=== PATIENT | female | born 1990 | race Caucasian/White ===

== ENCOUNTER 2016-08-06 23:22 | Emergency (ER) | payer BC, OTHER ==
[~2016-08-06] VITALS: Ht 162.6 cm; Wt 54.2 kg
[~2016-08-06 23:22] MED LIST: CIPR-255 PO
[2016-08-06 23:27] VITALS: TEMP 36.8; Ht 162.6 cm; Wt 54.2 kg
[2016-08-06] MEDS ORDERED: AMOX500C3 PO (23:48)
[2016-08-06 23:53] VITALS: BP 104/66; PULSE 82; O2SAT 99
[2016-08-06] MEDS ORDERED: PRENTAB26 PO (23:56)
[2016-08-06] MEDS ORDERED: CHOL1000 PO (23:57)
--- NOTE | 2016-08-06 23:58 | EMERGENCY ROOM VISIT NOTE ---
History First contact with patient: 23:30 Chief Complaint: SINUS CONGESTION/PRESSURE Stated Complaint: COLD SYMPTOMS Nursing Triage Summary: Cough and congestion History of Present Illness The patient is a 25 year old female who presents to the Emergency Room with complaints of getting and sinus congestion, pressure, postnasal drip and coughing from the postnasal drip. The patient reports that her symptoms started 4 days ago, and are progressively worsening. She denies any fevers or chills. She does report a history of chronic sinusitis as a child. The patient is currently 14 weeks . She did call her CASH APPLICATIONS MANAGER who suggested that she could take Sudafed for her symptoms. She is concerned that Sudafed could be harmful for her . She has also been using a humidifier which has helped significantly. She does report a mild headache rated a 2 out of 10. Review of Systems 10 system review was performed and was negative except for pertinent positives and negatives as indicated in history of present illness Past Medical/Surgical History Medical Problems: (1) Stomach problems Surgical Problems: (1) H/O arthroscopic knee surgery Family History Cancer FH: diabetes mellitus Gallbladder disease Heart disease Hypertension Kidney disease Social History Smoking Status: Former Smoker Alcohol Use: none Marital Status: Occupation Status: employed Current/Historical Medications Scheduled Amoxicillin (Amoxil), 500 MG PO TID Cholecalciferol (Vitamin D3), 5,000 UNITS PO DAILY Multivit/Min/Iron/Fol Ac/Pren ( Vitamin), 1 TAB PO DAILY Allergies Coded Allergies: Asparagus (Verified Allergy, Severe, RASH, 05/20/16) Gluten (Verified Adverse Reaction, Intermediate, GI UPSET, 05/20/16) Physical Exam Vital Signs Date Time Temp Pulse Resp B/P Pulse Ox O2 Delivery O2 Flow Rate FiO2 08/06/16 23:53 82 16 104/66 99 08/06/16 23:46 100 Room Air 08/06/16 23:27 36.8 86 20 113/70 94 Room Air Physical Exam CONSTITUTIONAL: Healthy and well nourished. Alert and oriented X 3 with positive affect. Patient does not appear in any acute distress. HEENT: Normocephalic, atraumatic. Pupils equal, round and reactive. Patient does not have any significant tenderness to palpation or percussion of the frontal or maxillary sinuses. Clear rhinorrhea is noted. TMs are bulging without air-fluid levels or purulent effusion. OROPHARYNX: Mild postnasal drip is noted. No tonsillar hypertrophy. NECK: Full active range of motion without discomfort. LYMPHATICS: No cervical chain adenopathy. RESPIRATORY: Clear to auscultation bilaterally with no wheezing, crackles, rhonchi or stridor. CARDIOVASCULAR: Regular rate and rhythm with no murmurs, rubs or gallops. INTEGUMENTARY: No rash or other significant dermatologic conditions noted. NEUROLOGIC: No focal neurologic deficits noted. Medical Decision & Procedures ED Course Patient history and physical exam were performed. Nurse's notes were reviewed. Vital signs were reviewed. The patient is afebrile. O2 saturation was 94% on room air in triage. I did recheck O2 saturation in her room, and was 98%. Clinical exam is suggestive of sinus etiology, probably acute viral sinusitis. I did suggest trying Benadryl for symptomatic relief. She can also try saline nasal rinses as well as. I will defer the choice of Sudafed to the patient's OB /NATURAL RESOURCES ENGINEER. In case the patient's symptoms progressively worsen, she was provided a prescription for amoxicillin 500 mg 3 times a day 10 days. She was instructed to follow-up with her family doctor if symptoms progressively worsened. The patient was happy with plan of care, voiced understanding of all discharge instructions, and denied any significant discomfort at the time of discharge. Medical Decision Impression Primary Impression: Acute sinusitis Departure Information Dispostion Home / Self-Care Prescriptions Amoxicillin (AMOXIL) 500 Mg Cap 500 MG PO TID for 10 Days, #30 CAP Prov: Evaristo Win PA 08/06/16 Forms HOME CARE DOCUMENTATION FORM, IMPORTANT VISIT INFORMATION Patient Instructions Sinusitis Acute, My [facility] Additional Instructions Try taking Benadryl for symptomatic relief. Also suggest trying nasal saline rinses. Tylenol 1000 mg every 6-8 hours as needed for headache or pain. Symptoms progressively worsened, take your amoxicillin antibiotics as prescribed. Follow-up with your family doctor as needed for any worsening symptoms. Problem Qualifiers Primary Impression: Acute sinusitis Sinusitis location: unspecified location Recurrence: non-recurrent Qualified Codes: J01.90 - Acute sinusitis, unspecified
== END 2016-08-06 23:54 | disposition home or self-care (01) ==
LOC: C.EDB 23:23 → C.EDA 23:54
DX: J01.90 Acute sinusitis, unspecified (principal); O99.512 Diseases of the respiratory system complicating pregnancy, second trimester; Z3A.14 14 weeks gestation of pregnancy; Z79.899 Other long term (current) drug therapy; Z87.891 Personal history of nicotine dependence; Z82.49 Family history of ischemic heart disease and other diseases of the circulatory system; Z83.3 Family history of diabetes mellitus; Z83.79 Family history of other diseases of the digestive system; Z84.1 Family history of disorders of kidney and ureter

== ENCOUNTER 2016-11-26 17:24 | Outpatient (CLI) | payer BC ==
[~2016-11-26 17:24] MED LIST changes: +CHOL1000 PO; -CIPR-255 PO; +PRENTAB26 PO
--- NOTE | 2016-11-26 18:50 | Progress Note ---
Progress Note Date of Service November 26, 2016. Progress Note Outpatient Note 26 F P0000 at 30.1 weeks seen in L&D today for abdominal pain that is not accompanied by any leakage of fluid or any bleeding. Patient states she has no dysuria or frequency. Has had no constipation and moving her bowels OK. No problems in the to date. T Cat 1. Cervix closed and thick and posterior. Will d/c home. Encourage PO hydration.
== END 2016-11-26 19:04 | disposition home or self-care (01) ==
LOC: C.OPB 17:24 → C.LD 17:25 → C.OPB 19:04
PROVIDERS: ATTEND Obstetrics & Gynecology
DX: O26.893 Other specified pregnancy related conditions, third trimester (principal); R10.9 Unspecified abdominal pain; Z3A.30 30 weeks gestation of pregnancy

== ENCOUNTER 2017-02-03 03:27 | Inpatient (IN) | payer BC ==
[~2017-02-03] VITALS: Ht 162.6 cm; Wt 54.0 kg
[2017-02-07] MEDS ORDERED: DINOPROSTONE 10 MG INSERT PV ONE (19:30)
[2017-02-07] MEDS: LACTATED RINGER'S 1000ML 1,000 ML IV SCH (20:14)
[2017-02-07] MEDS ORDERED: CALCIUM CARBONATE 500 MG CHEWABLE PO PRN (20:30)
--- NOTE | 2017-02-07 20:41 | HISTORY & PHYSICAL EXAMINATION ---
DATE OF ADMISSION: 02/07/2017 CHIEF COMPLAINT: Postdates , here for labor induction. HISTORY OF PRESENT ILLNESS: This is a 26-year-old , due date 02/03/2017 making her 40 weeks and 4 days . The patient is here at [facility] for labor induction for postdates. On arrival to labor and delivery, she has no shortness of breath, no chills, no fever, no bloody show, no rupture of membranes. heart rate is category 1. COURSE: Unremarkable. LABS: Blood type A negative, antibody negative, rubella immune, GBS negative. PAST MEDICAL HISTORY: None. PAST SURGICAL HISTORY: History of knee surgery. SOCIAL HISTORY: The patient denies tobacco, drug or alcohol use. FAMILY HISTORY: Noncontributory. OBSTETRIC AND GYNECOLOGIC HISTORY: This is patient's first . PHYSICAL EXAMINATION: GENERAL: Well-developed, well-nourished white female in no acute distress. HEART: S1, S2, regular rhythm and rate. LUNGS: Clear to auscultation bilaterally. ABDOMEN: Gravid. PELVIC: The patient was 2 cm dilated. EXTREMITIES: No cyanosis, clubbing or edema. ASSESSMENT AND PLAN: A 26-year-old 1, para 0, at 40 weeks and 4 days here for postdates induction. Plan is to admit patient and start induction and anticipate vaginal delivery.
[2017-02-07 21:11] LABS: HEMATOCRIT 35.5 % (37-47); MEAN CELL VOLUME 93.9 fL (80-100); MEAN CORPUSCULAR HEMOGLOBIN 32.5 pg (25-34); MEAN CORPUSCULAR HGB CONC 34.6 g/dl (32-36); MEAN PLATELET VOLUME 10.1 fL (7.4-10.4); PLATELET COUNT 191 K/uL (130-400); RED BLOOD COUNT 3.78 M/uL (4.2-5.4)
[2017-02-07 21:17] VITALS: Ht 162.6 cm; Wt 54.0 kg
[2017-02-08] MEDS: LACTATED RINGER'S 1000ML 1,000 ML IV SCH ×4 (02:02→15:20)
[2017-02-08] MEDS ORDERED: BUTORPHANOL TARTRATE 1 MG/ML VIAL IV ONE (06:00)
[2017-02-08] MEDS ORDERED: NURSING VERBAL MED ORDER ONE (06:00)
[2017-02-08] MEDS ORDERED: LACTATED RINGER'S 1000ML 500 ML IV PRN ×2 (08:26→10:33)
[2017-02-08] MEDS ORDERED: OXYTOCIN 30 UNITS/500ML NSS IV PRN ×2 (08:30→20:15)
[2017-02-08] MEDS ORDERED: EpHEDrine SULFATE INJ 50 MG/ML AMP ONE (09:59)
[2017-02-08] MEDS ORDERED: FENTANYL 2MCG/ML ROPIV 1.25MG/ML 100ML BAG EPI ONE (09:59)
[2017-02-08] MEDS ORDERED: FENTANYL CITRATE INJ 50 MCG/1 ML 2 ML VIAL ONE (09:59)
[2017-02-08] MEDS ORDERED: BUPIVACAINE 0.25% 30 ML VIAL ONE ×2 (09:59→18:11)
[2017-02-08] MEDS ORDERED: NALOXONE HCL INJ 1 MG in SODIUM CHLORIDE 0.9% 1000ML 1,000 ML IV PRN (10:33)
[2017-02-08] MEDS ORDERED: NALOXONE HCL INJ 0.4 MG/1 ML VIAL/CARP IV PRN (10:45)
[2017-02-08] MEDS ORDERED: DiphenhydrAMINE HCL 50 MG/ML VIAL IV PRN (10:45)
[2017-02-08] MEDS ORDERED: NALBUPHINE HCL INJ 10 MG/ML AMP IV PRN (10:45)
[2017-02-08] MEDS ORDERED: EpHEDrine SULFATE INJ 50 MG/ML AMP IV PRN (10:45)
[2017-02-08] MEDS ORDERED: ONDANSETRON INJ 2 MG/ML 2 ML VIAL IV PRN (10:45)
[2017-02-08] MEDS: FENTANYL 2MCG/ML ROPIV 1.25MG/ML 100ML BAG EPI PRN ×2 (18:59→19:11)
[2017-02-08] MEDS ORDERED: LACTATED RINGER'S 1000ML 1,000 ML IV SCH (20:15)
[2017-02-08] MEDS ORDERED: BENZOCAINE 20% AER SPR 82.5 GM CAN EXT PRN (20:15)
[2017-02-08] MEDS ORDERED: HYDROCORTISONE ACETATE 25 MG SUPP PR PRN (20:15)
[2017-02-08] MEDS ORDERED: LANOLIN OINT EXT PRN ×2 (20:15)
[2017-02-08] MEDS ORDERED: SUPERCREAM 0.870 % 15GM JAR EXT PRN (20:15)
[2017-02-08] MEDS ORDERED: ACETAMINOPHEN 325 MG TAB PO PRN (20:15)
[2017-02-08] MEDS: IBUPROFEN 600 MG TAB PO PRN (20:38)
--- NOTE | 2017-02-08 22:16 | Anesthesia Procedure Note ---
Anesthesia Epidural Removal Nt Date & Time Feb 08, 2017 at 22:16 Vital Signs Pain Intensity: 4.0 Notes Mental Status: alert / awake / arousable, participated in evaluation Nausea / Vomiting: adequately controlled Pain: adequately controlled Airway Patency, RR, SpO2: stable & adequate BP & HR: stable & adequate Hydration State: stable & adequate Neuraxial Anesthesia: was administered, sensory block is resolving Anesthetic Complications: no major complications apparent, pt satisfied with anesthetic care Epidural: removed without complications, with tip intact
[2017-02-08 23:00] VITALS: BP 101/68; PULSE 72; TEMP 36.9
[2017-02-09 03:55] VITALS: BP 109/71; PULSE 89; TEMP 36.7
[2017-02-09] MEDS: IBUPROFEN 600 MG TAB PO PRN ×3 (06:00→19:34)
[2017-02-09 06:41] LABS: HEMATOCRIT 33.2 % (37-47)
[2017-02-09] MEDS ORDERED: DIPHTHERIA/TETANUS/PERTUSSIS 0.5 ML SYR/VIAL IM. ONE (08:00)
[2017-02-09] MEDS ORDERED: MEASLES, MUMPS & RUBELLA VIRUS VIAL SQ. ONE (08:00)
[2017-02-09 08:15] VITALS: BP 114/75; PULSE 98; TEMP 37.1
[2017-02-09] MEDS: PRENATAL VITAMIN TAB PO SCH (09:15)
[2017-02-09] MEDS: DOCUSATE SODIUM 100 MG CAP PO SCH ×2 (09:16→19:34)
[2017-02-09] MEDS: FERROUS SULFATE 325 MG TAB PO SCH (09:16)
--- NOTE | 2017-02-09 09:42 | DELIVERY SUMMARY ---
DATE OF OPERATION: 02/08/2017 TIME OF DELIVERY OF BABY: 1946 p.m. TIME OF DELIVERY OF PLACENTA: 2000 p.m. DETAILS OF DELIVERY: The patient was found to be fully dilated and desired to push. She pushed for about 2 hours and delivered the head over an intact perineum. Anterior shoulder was delivered with minimal traction and then baby was delivered without difficulty and handed off to the mother, where mouth and nose were suctioned. Cord was clamped x2 and cut at 1 minute and it was a 3-vessel cord. Cord blood was obtained. Baby was recovered on the maternal chest. Then the mother's vagina and perineum were checked for lacerations. There was a 1 cm first-degree vaginal laceration at the left of lower vaginal wall. It was repaired with 3-0 Vicryl in a running locked fashion. Good hemostasis was achieved. There was a superficial first degree laceration on anterior vaginal wall lower the bladder. Babin catheter was inserted into the bladder during repair and removed. It was repaired with 3-0 Vicryl on SH needle. Good hemostasis was achieved. Placenta was found to be in the vagina and delivered spontaneously as intact and complete. Uterus was explored and found to be empty. Lower segment was cleared of all clots and debris. Fundus was firm. EBL was 200. Mom and baby tolerated the procedure well. Sponge, lap, needle, instrument count was correct x2. Baby was a viable male . Apgars 8/9 and Weight is 3536 gr. No complications happened and I was present during whole procedure. I attest to the content of the Intraoperative Record and any orders documented therein. Any exceptions are noted below. MTDD
--- NOTE | 2017-02-09 11:42 | OB/GYN Progress Note ---
SUSPENDER MAKER Progress Note Date of Service Feb 09, 2017. Subjective conversation w/ patient, physical exam Ambulation: ambulating normally Voiding: no voiding problems Passing Gas: Yes Diet Tolerance: Regular Diet Lochia: Small Feeding Type: Breast Feeding Pain: 07/17 Notes: Doing well, no concerns. Objective Vital Signs Date Time Temp Pulse Resp B/P (MAP) Pulse Ox O2 Delivery O2 Flow Rate FiO2 02/09/17 08:15 Room Air 02/09/17 08:15 37.1 98 18 114/75 (88) Room Air 02/09/17 03:55 36.7 89 18 109/71 (84) Room Air 02/08/17 23:00 Room Air 02/08/17 23:00 36.9 72 18 101/68 (79) Room Air Physical Exam General Appearance: WELL-APPEARING Respiratory/Chest: chest non-tender, lungs clear Cardiovascular: regular rate, rhythm Abdomen: normal bowel sounds, soft Fundus: Firm Extremities: normal range of motion, non-tender, no calf tenderness Laboratory Results Last 24 Hours Test 02/09/17 06:08 Hemoglobin 11.3 g/dL Hematocrit 33.2 % Assessment and Plan Post- Day Number: 1 Continue Routine Care: -Continue routine care -Anticipate d/c home tomorrow
[2017-02-09 12:00] VITALS: BP 112/72; PULSE 101; TEMP 36.8
[2017-02-09 15:45] VITALS: BP 112/72; PULSE 96; TEMP 36.9
[2017-02-09 19:45] VITALS: BP 122/79; PULSE 86; TEMP 36.6; O2SAT 100
[2017-02-09] MEDS ORDERED: BISACODYL 5 MG TABEC PO SCH (20:00)
[2017-02-10] VITALS: BP 119/75; PULSE 83; TEMP 36.8; O2SAT 98
[2017-02-10] MEDS: IBUPROFEN 600 MG TAB PO PRN ×2 (01:15→09:43)
[2017-02-10] MEDS ORDERED: BISACODYL 10 MG SUPP PR PRN (07:00)
[2017-02-10 07:30] VITALS: BP 103/65; PULSE 81; TEMP 36.9
--- NOTE | 2017-02-10 08:10 | Discharge Instructions ---
Discharge Instructions Date of Service Feb 10, 2017. Admission Reason for Admission: Induction Discharge Discharge Diagnosis / Problem: Vaginal Delivery Discharge Goals Goal(s): Routine recovery after delivery Medications Continue Dispensed Medications: supercream, dermaplast, tucks, lansinoh Activity Recommendations Activity Limitations: per Instructions/Follow-up section . Instructions / Follow-Up Instructions / Follow-Up ACTIVITY RECOMMENDATIONS: * Gradual return to full activity over the next 2-3 weeks. * No lifting - nothing heavier than baby over the next 2-3 weeks. * Do not engage in vigorous exercise, sexual activity or sports until cleared by your physician. * Do not drive or operate any motorized equipment until cleared by your physician. * You may shower/bathe daily. BREAST CARE: If you are not breast feeding: * Wear a supportive bra 24 hours a day for one to two weeks. * Avoid stimulating your breasts and nipples as much as possible during the first few weeks after delivery. * When taking a shower, have the warm water hit your back, not breasts. * When your breasts feel full, apply ice packs. Usually three to four times a day helps ease the discomfort. * Take a mild pain medication (Tylenol/Motrin) when you are uncomfortable. If breast feeding: * Use breast milk to lubricate nipples. Lansinoh cream may be used for sore nipples. You do not need to remove cream prior to breast feeding. If using a different brand of cream, check the label for directions regarding removal of cream prior to nursing. * Wear a supportive bra. * If having problems with breasts or breast feeding, call a cost consultant or your health care provider. EPISIOTOMY CARE: After delivery, if you have an episiotomy (stitches), the following steps will ease discomfort and aid healing. * For the first 24 hours after delivery, place ice packs next to your episiotomy to help reduce swelling. * After the first 24 hour-period, sitz baths, either portable or in the tub, are suggested. A shower with a shower arm sprayed over the episiotomy may be comforting. * Maria Antonia care should be done after each voiding and bowel movement. Squirt warm water from a plastic bottle over the perineum (region of the body between the anus and urinary opening) and pat dry. * Use Dermoplast to ease discomfort. Shake container. [place] directly over the episiotomy. * Place a Tucks on a clean sanitary pad next to your episiotomy. OVER THE COUNTER MEDICATION: * For discomfort or pain, you may use Acetaminophen (Tylenol), Ibuprofen (Advil ), or Naproxen (Aleve) following the package directions. * For constipation you may use Colace following the package directions. SPECIAL CARE INSTRUCTIONS: When you are discharged from the hospital, it is important for you to follow the instructions listed below: * During the first week at home, you should be able to care for yourself and your baby. In addition, the usual light household activities are encouraged. * Limit your activities to the way you feel. Do not try to clean the house or move furniture. Be sensible. * If you actively engage in sports and have done so up until the time of your delivery, you may resume these activities as soon as you feel able. This may take up to one month or even longer. Use good judgment. * Continue to take your vitamins for at least six weeks after the of your baby. * Your diet need not be limited unless you were on a special diet before your delivery. Breast-feeding mothers need around 2500 calories per day and at least 64-80 ounces of fluid per day (8 to 10 glasses). * You should eat foods from the four major food groups. Crash diets or fad diets are to be avoided. Eating lean meats, fresh fruits and vegetables, low-fat dairy products, high fiber foods and a regular exercise program, will help you get back to your pre- weight without putting your health at risk. * Constipation is sometimes a problem after delivery. Take a mild laxative as needed. If breast feeding, Milk of Magnesia is acceptable to use. You may use a suppository or Fleets enema if no episiotomy. * A daily shower or tub bath is suggested. Be sure to thoroughly and gently dry the perineum. * A bloody vaginal discharge will usually continue until around four weeks post . A small amount of bleeding may continue for as long as six weeks. Vaginal discharge changes from the bright red bleeding after delivery to pink then brownish and finally yellowish-pink before becoming white and disappearing. * Bleeding may increase with activity. Your first period may come in 4-8 weeks. If you are breast feeding, your period may be delayed even longer. * [place] (sex) can begin whenever both you and your partner feel comfortable and do not have any form of genital infection. It is recommended that you wait until after your return appointment and discuss with your physician. If you have questions, please talk to your health care practitioner. A condom should be used to prevent infection and . * Foreplay, gentle intercourse and lubrication is very important the first several times to prevent pain. A water-based lubricant such as K-Y jelly or Astroglide may be used. * Tampons may be used six weeks after delivery. * Douching should be avoided for 6 weeks after delivery. * If you have RH negative blood and your baby is RH positive, you will receive RHOGAM by injection prior to discharge. The nurse will give you a card to keep with you that has the date and place that you received RHOGAM after delivery. * During your care, you had a Rubella screen done to check for the presence of rubella antibodies in your blood. If your test was negative, you will receive a Rubella vaccine prior to discharge. This vaccine may cause a fever, soreness at the injection site and flu-like symptoms. If these symptoms persist, notify your health care practitioner. is not advised for three months after a Rubella vaccine. There is a higher chance of having a baby with defects if conceived within three months of getting the vaccine. * If you were discharged 24 hours from delivery or before 48 hours: Visiting nurses will come to your home 48 hours after discharge to assess you and your baby. The visiting nurse will meet with you while you are in the hospital to arrange a time and get directions to your home. * Verbalizes understanding of car seat law as reviewed with patient nursing. * Car Seat hand-out given and reviewed with patient by nursing. * Shaken baby information reviewed with patient by nursing. Call you doctor if: * Heavy bleeding (saturating several pads an hour) or passing clots the size of your fist. * A fever >101 degrees F (38.3 degrees C) on two occasions four hours apart and/or chills. * Unusual pain in the pelvic or vaginal areas. * "Baby Blues" lasting longer than two weeks. If you have any questions or concerns, call your health care practitioner at . FOLLOW-UP VISIT: * Please call the office at to schedule a 6 week examination. It is important you keep this appointment. * It is important for you to make arrangements for either yearly or twice yearly check-ups thereafter. Current Hospital Diet Patient's current hospital diet: N/A, Regular OB Diet Discharge Diet Recommended Diet: Regular OB Diet Pending Studies Studies pending at discharge: no Medical Emergencies . Who to Call and When: Medical Emergencies: If at any time you feel your situation is an emergency, please call 911 immediately. . Non-Emergent Contact Non-Emergency issues call your: Primary Care Provider, Ekg Monitor . . "Provider Documentation" section prepared by Nico Cardoza. . VTE Core Measure Inpt VTE Proph given/why not?: Treatment not indicated
--- NOTE | 2017-02-10 08:12 | OB/GYN Progress Note ---
ADJUNCT TRAINER Progress Note Date of Service Feb 10, 2017. Subjective conversation w/ patient Ambulation: ambulating normally Voiding: no voiding problems Passing Gas: Yes Diet Tolerance: Regular Diet Lochia: Small Feeding Type: Breast Feeding Pain: 07/17 Notes: Doing well, no concerns. Would like to go home today. Review of Systems Constitutional: No fever, No chills, No sweats, No weight loss, No weakness, No fatigue, No problem reported Respiratory: No cough, No sputum, No wheezing, No shortness of breath, No dyspnea on exertion, No dyspnea at rest, No hemoptysis, No problem reported Cardiac: No chest pain, No orthopnea, No PND, No edema, No claudication, No palpitations, No problem reported Abdomen: No pain, No nausea, No vomiting, No diarrhea, No constipation, No GI bleeding, No problem reported Female : No see HPI, No dysuria, No urinary frequency, No hematuria, No incontinence, No abnormal vaginal bleeding, No vaginal discharge, No problem reported Objective Vital Signs Date Time Temp Pulse Resp B/P (MAP) Pulse Ox O2 Delivery O2 Flow Rate FiO2 02/10/17 00:00 98 Room Air 02/10/17 00:00 36.8 83 20 119/75 (90) 98 Room Air 02/09/17 19:45 36.6 86 20 122/79 (93) 100 Room Air 02/09/17 15:45 Room Air 02/09/17 15:45 36.9 96 18 112/72 (85) Room Air 02/09/17 12:00 36.8 101 18 112/72 (85) Room Air 02/09/17 08:15 Room Air 02/09/17 08:15 37.1 98 18 114/75 (88) Room Air Assessment and Plan Post- Day Number: 2 Continue Routine Care: -D/C home today -F/U in 6 weeks.
[2017-02-10] MEDS: PRENATAL VITAMIN TAB PO SCH (09:35)
[2017-02-10] MEDS: FERROUS SULFATE 325 MG TAB PO SCH (09:35)
[2017-02-10] MEDS: DOCUSATE SODIUM 100 MG CAP PO SCH (09:35)
[2017-02-10 11:35] VITALS: BP_DIAS 65; PULSE 81; TEMP 36.9
== END 2017-02-10 11:40 | disposition home or self-care (01) | DRG 775 ==
LOC: C.LD 02-07 18:48 → C.OBG 02-08 22:53
PROVIDERS: ADMIT Obstetrics & Gynecology; ATTEND Obstetrics & Gynecology
PROC: 10E0XZZ Delivery of Products of Conception, External Approach (ICD-10-PCS; principal; 2017-02-08)
PROC: 0UQG7ZZ Repair Vagina, Via Natural or Artificial Opening (ICD-10-PCS; principal; 2017-02-08)
PROC: 3E0P7GC Introduction of Other Therapeutic Substance into Female Reproductive, Via Natural or Artificial Opening (ICD-10-PCS; principal; 2017-02-08)
DX: O48.0 Post-term pregnancy (principal); O71.4 Obstetric high vaginal laceration alone; O76 Abnormality in fetal heart rate and rhythm complicating labor and delivery; Z37.0 Single live birth; Z3A.40 40 weeks gestation of pregnancy

== ENCOUNTER 2017-10-01 19:00 | Emergency (ER) | payer SELFPAY ==
[~2017-10-01] VITALS: Ht 162.6 cm; Wt 53.5 kg
[2017-10-01 19:09] VITALS: TEMP 36.7; Ht 162.6 cm; Wt 53.5 kg
[2017-10-01] MEDS ORDERED: AMX500 PO (19:25)
--- NOTE | 2017-10-01 19:29 | EMERGENCY ROOM VISIT NOTE ---
History First contact with patient: 19:12 Chief Complaint: DENTAL PAIN Stated Complaint: TOOTH ISSUES Nursing Triage Summary: Pt states has a right upper wisdom tooth that "has a hole in it and I think it exploded and is infected. It broke two days ago." History of Present Illness The patient is a 26 year old female who presents to the Emergency Room via private vehicle accompanied by male and young child "dental pain". The patient states that with complaints of she has been experiencing cold is with her right superior posterior wisdom tooth for the past 2 years. She states that it broke 2 days ago, now she has had significant pain is been increasing and radiates to her face. She rates the overall pain as a 7/10. She has been trying ibuprofen with minimal relief. She expresses concerns that this is causing her to have decreased eating habits because of the pain and worries that it may subsequently affect the child what she is breast-feeding. There are no fevers, chills, drainage is from the region. Review of Systems A complete 10-point Review of Systems was discussed with the patient, with pertinent positives and negatives listed in the History of Present Illness. All remaining Review of Systems questions can be considered negative unless otherwise specified. Past Medical/Surgical History Medical Problems: (1) Abdominal pain affecting (2) (3) Stomach problems Surgical Problems: (1) H/O arthroscopic knee surgery Family History Cancer FH: diabetes mellitus Gallbladder disease Heart disease Hypertension Kidney disease Social History Smoking Status: Never Smoker Alcohol Use: none Marital Status: Occupation Status: employed Current/Historical Medications Scheduled Amoxicillin (Amoxicillin), 500 MG PO TID Cholecalciferol (Vitamin D3), 5,000 UNITS PO DAILY Multivit/Min/Iron/Fol Ac/Pren ( Vitamin), 1 TAB PO DAILY Physical Exam Vital Signs Date Time Temp Pulse Resp B/P (MAP) Pulse Ox O2 Delivery O2 Flow Rate FiO2 10/01/17 20:12 75 16 113/76 98 10/01/17 19:09 36.7 94 18 148/89 98 Room Air Physical Exam VITAL SIGNS - Vital signs and nursing notes were reviewed. Stable. GENERAL - 26-year-old female appearing her stated age who is in no acute distress. Communicates well with provider and answers questions appropriately. SKIN - Without rashes. No meningeal rashes or petechial rashes. HEAD - NC/AT. EYES - PERRL with EOMI bilaterally. Sclera anicteric. EARS - No deformities of external structures noted on gross examination bilaterally. External auditory canals without discharge or otorrhea. Tympanic membranes pearly perez without retraction or bulging. No fluid or purulent material visualized behind the TM. Handle of malleus, umbo, cone of light, pars tensa/flaccid all easily visualized. NOSE - Midline and without cyanosis. No epistaxis or purulent drainage noted. MOUTH/OROPHARYNX - Without perioral cyanosis. Buccal mucosa pink and moist and without leukoplakia. Fractured superior, posterior dentition noted. No drainage , evidence of abscess or overt infection. NECK - Neck with FROM. Supple to palpation. No lymphadenopathy noted. No nuchal rigidity. Medical Decision & Procedures Medications Administered Medications (Trade) Dose Ordered Sig/Jessie Route Start Time Stop Time Status Last Admin Dose Admin Ibuprofen (Motrin Tab) 600 mg STK-MED ONCE .ROUTE 10/01/17 20:07 10/01/17 20:08 DC 10/01/17 20:07 600 MG Acetaminophen (Tylenol Tab) 1,000 mg STK-MED ONCE PO 10/01/17 20:07 10/01/17 20:08 DC 10/01/17 20:07 1,000 MG Medical Decision Patient was seen and evaluated as above in room D6. She presents to us today with right superior posterior molar/wisdom tooth pain with fracture of the tooth. No drainage. The gums are not erythematous. No evidence of Edwardo angina. There is no evidence of infection at this time from a visual inspection standpoint. She is nontoxic in appearance. Review was performed of nursing notes and vital signs. After obtaining a thorough history and physical examination decision was made to treat her with amoxicillin in the event that you could be a small infection developing that is subclinical, and providing her information to follow with a local dentist. She is to return with worsening. I do believe amoxicillin as a safe choice given that she is breast- feeding, and she is also to alternate Tylenol and ibuprofen being observant of the dosages. She is to return with worsening. The patient was educated upon management, had questions answered prior to discharge, and was discharged home in good condition. In the evaluation and treatment of this patient, the following differential diagnoses were considered: Periapical Abscess, Osteonecrosis of the Jaw, Dental Fracture, Dental Caries, Edwardo's Angina, Vincent's Angina, Facial Cellulitis. Impression Primary Impression: Pain, dental Departure Information Dispostion Home / Self-Care Condition GOOD Prescriptions Amoxicillin (Amoxicillin) 500 Mg Cap 500 MG PO TID for 10 Days, #30 TABS Prov: Yvette Lane Santizo PA-C 10/01/17 Referrals Salvatore Lundberg M.D.([facility]) (PCP) Patient Instructions My [facility] Additional Instructions You have been treated in the Emergency Department for Dental Pain. You were prescribed Amoxicillin to be taken every 8 hours. This is an antibiotic. All antibiotics have the potential to cause diarrhea. Stop this medication and contact a medical provider if you were to develop any significant adverse side effects including: wheezing, shortness of breath, passing out, vomiting, or a diffuse rash. Always take antibiotics as directed and COMPLETE the ENTIRE course regardless of the improvement of your symptoms. For pain control, you can use the following [id number] medicines (if >12 yo): - Regular strength (325mg/tab) Tylenol (acetaminophen) 2 tabs every 4-6 hours as needed. Do not exceed 12 tablets in a 24 hour period. Avoid taking more than 3 grams (3000 mg) of Tylenol per day. This includes any other sources of acetaminophen you may take on a regular basis. - Regular strength (200 mg/tab) Advil (ibuprofen) 1-2 tabs every 4-6 hours as needed. Do not exceed a dose of 3200 mg per day. Refrain from smoking cigarettes or using chewing tobacco until you have been evaluated by your dentist. Keeping beverages lukewarm and consuming soft foods can decrease your pain. Warm compresses over the affected area may offer some relief. You MUST seek evaluation of your dental pain by a dentist following your visit to the Emergency Department. The Emergency Department is not capable of treating dental issues long-term. You should call your dentist as soon as possible to make an appointment for evaluation of your dental pain. Dr. Gustavo Flores, DMD [phone] [address], [address], [place]. Use the wax over the tooth for comfort. Return to the emergency department if you develop the following symptoms despite treatment course outlined above: fever, intractable pain, increased redness, swelling, or purulent discharge.
[2017-10-01] MEDS ORDERED: ACETAMINOPHEN 500 MG TAB PO ONE (20:07)
[2017-10-01] MEDS ORDERED: IBUPROFEN 600 MG TAB ONE (20:07)
[2017-10-01 20:12] VITALS: BP 113/76; PULSE 75; O2SAT 98
== END 2017-10-01 20:13 | disposition home or self-care (01) ==
LOC: C.EDB 19:02 → C.EDD 20:13
DX: S02.5XXA Fracture of tooth (traumatic), initial encounter for closed fracture (principal); X58.XXXA Exposure to other specified factors, initial encounter